=== PATIENT | female | born 1995 | race Two or more races ===

== ENCOUNTER 2023-07-04 11:53 | Day surgery (SDC) | payer OTHER ==
[2023-07-02 15:19] LABS: URINE APPEARANCE Clear; URINE BILIRRUBIN Negative (NEGATIVE); URINE BLOOD Negative; URINE COLOR Yellow; URINE GLUCOSE Negative (NEGATIVE); URINE LEUKOCYTE Negative; URINE NITRATE Negative; URINE PROTEIN Negative (NEGATIVE)
[2023-07-02 15:20] LABS: HEMATOCRIT 37.3 % (36.0-45.00); HEMOGLOBIN 12.8 g/dL (12.0-15.00); MEAN CELL VOLUME 83.7 fL (80.00-100.00); MEAN CORPUSCULAR HEMOGLOBIN 28.9 pg (27.00-32.0); MEAN CORPUSCULAR HGB CONC 34.5 g/dl (32.0-36.0); PLATELET COUNT 198 K/uL (150-450); RED BLOOD COUNT 4.45 M/uL (4.00-6.00); RED CELL DISTRIBUTION WIDTH 12.3 % (11.5-14.5)
[2023-07-02 15:22] LABS: URINE BACTERIA 254.3 uL (0.0-1933); URINE EPITHELIAL CELLS 52.6 uL (0.0-38.8); URINE RBC 3.1 uL (0.0-20.8); URINE WBC 6.4 uL (0.0-23.2)
[2023-07-02 15:43] LABS: INR 1.02; PARTIAL THROMBOPLASTIN TIME 27.3 SECONDS (22.0-34.0); PROTHROMBIN TIME 10.7 SECONDS (9.0-11.5)
[2023-07-02 16:50] LABS: RH NEGATIVE
[~2023-07-04 11:53] MED LIST: AMPICILLIN TRI500 MG PO
== END 2023-07-05 04:10 | disposition home or self-care (01) ==
LOC: CIR.AMB 11:53
PROVIDERS: ATTEND Obstetrics & Gynecology
DX: O02.1 Missed abortion (principal); O72.2 Delayed and secondary postpartum hemorrhage; Z20.822 Contact with and (suspected) exposure to COVID-19

== ENCOUNTER 2024-03-07 08:07 | Outpatient (CLI) | payer OTHER | END 2024-03-07 08:08 | disposition home or self-care (01) | LOC: PRENATAL 08:07 | PROVIDERS: ATTEND Obstetrics & Gynecology Maternal & Fetal Medicine | DX: O35.3XX0 Maternal care for (suspected) damage to fetus from viral disease in mother, not applicable or unspecified (principal); O44.00 Complete placenta previa NOS or without hemorrhage, unspecified trimester; O36.1999 Maternal care for other isoimmunization, unspecified trimester, other fetus; Z3A.19 19 weeks gestation of pregnancy ==

== ENCOUNTER 2024-07-23 05:31 | Inpatient (IN) | payer OTHER ==
[~2024-07-23] VITALS: Ht 160 cm; Wt 76.2 kg
[2024-07-23] VITALS (12 sets, daily range): BP systolic 105–132; BP diastolic 62–89
[2024-07-23] MEDS ORDERED: AMPICILLIN SODIUM 2,000 MG VIAL ONE (05:51)
[2024-07-23] MEDS ORDERED: PRENATAL TABLE1 EAC4 PO (06:30)
[2024-07-23] MEDS ORDERED: RINGERS SOLUTION,LACTATED 1,000 ML IV SCH (06:45)
[2024-07-23] MEDS ORDERED: AMPICILLIN SODIUM 2,000 MG VIAL IV ONE (06:45)
[2024-07-23 07:08] LABS: URINE BACTERIA 1260.6 uL (0.0-1933); URINE EPITHELIAL CELLS 58.6 uL (0.0-38.8); URINE RBC 4.5 uL (0.0-20.8); URINE WBC 11.5 uL (0.0-23.2)
[2024-07-23 07:09] LABS: HEMATOCRIT 36.2 % (36.0-45.00); HEMOGLOBIN 12.5 g/dL (12.0-15.00); MEAN CELL VOLUME 86.1 fL (80.00-100.00); MEAN CORPUSCULAR HEMOGLOBIN 29.7 pg (27.00-32.0); MEAN CORPUSCULAR HGB CONC 34.5 g/dl (32.0-36.0); PLATELET COUNT 169 K/uL (150-450); RED BLOOD COUNT 4.21 M/uL (4.00-6.00); RED CELL DISTRIBUTION WIDTH 12.8 % (11.5-14.5)
[2024-07-23 07:11] LABS: URINE CAST 0.14 uL (0.0-1.40)
[2024-07-23 07:12] LABS: URINE BILIRRUBIN SMALL (NEGATIVE); URINE BLOOD NEGATIVE; URINE GLUCOSE NEGATIVE (NEGATIVE); URINE LEUKOCYTE NEGATIVE; URINE NITRATE NEGATIVE; URINE PROTEIN NEGATIVE (NEGATIVE); URINE UROBILINOGEN 0.2 E.U./dl
[2024-07-23 07:13] LABS: URINE APPEARANCE CLEAR; URINE COLOR YELLOW; URINE KETONE >=80 (NEGATIVE)
[2024-07-23 07:17] LABS: INR 0.94; PARTIAL THROMBOPLASTIN TIME 25.6 SECONDS (22.0-34.0); PROTHROMBIN TIME 10.3 SECONDS (9.0-11.5)
[2024-07-23] MEDS ORDERED: AMPICILLIN SODIUM 1,000 MG VIAL IV SCH (09:00)
[2024-07-23] MEDS ORDERED: OXYTOCIN 20 UNITS/500ML RL PIGGYBAG IV SCH (10:30)
[2024-07-23] MEDS ORDERED: OXYTOCIN 20 UNITS/1000ML RL PIGGYBAG IV ONE (15:20)
[2024-07-23] MEDS ORDERED: LIDOCAINE HCL 1% 10ML VIAL ONE (15:20)
[2024-07-23] MEDS ORDERED: ERYTHROMYCIN BASE OPHT 1GM EACH TUBE OP ONE ×2 (15:20→16:30)
[2024-07-23] MEDS ORDERED: CHLORHEXIDINE GLUCONATE 120 ML BOTTLE TOP ONE ×2 (15:20→16:30)
[2024-07-23] MEDS ORDERED: OXYTOCIN 1,000 ML IV SCH ×2 (16:30→17:00)
[2024-07-23] MEDS ORDERED: LIDOCAINE HCL 1% 10ML VIAL IJ ONE (16:30)
[2024-07-23] MEDS ORDERED: ACETAMINOPHEN 500 MG GEL..CAP PO PRN (17:00)
[2024-07-23 20:22] LABS: HEMATOCRIT 32.4 % (36.0-45.00); MEAN CELL VOLUME 85.6 fL (80.00-100.00); MEAN CORPUSCULAR HGB CONC 33.9 g/dl (32.0-36.0); PLATELET COUNT 165 K/uL (150-450); RED BLOOD COUNT 3.79 M/uL (4.00-6.00)
[2024-07-24 04:55] VITALS: BP 102/66
[2024-07-24 08:00] VITALS: BP 119/72
[2024-07-24] MEDS ORDERED: PNV,CALCIUM 72/IRON/FOLIC ACID 1 TAB TABLET PO SCH (09:00)
[2024-07-24] MEDS ORDERED: FF) RHO(D) IMMUNE GLOBULIN (POM) IM SCH (13:00)
[2024-07-24 17:20] VITALS: BP 111/78
[2024-07-25 00:40] VITALS: BP 110/68
[2024-07-25 08:23] VITALS: BP 110/63
== END 2024-07-25 18:46 | disposition home or self-care (01) | DRG 807 ==
LOC: LDR → OB/GYN 16:15
PROVIDERS: ADMIT Obstetrics & Gynecology; ATTEND Obstetrics & Gynecology
PROC: 10E0XZZ Delivery of Products of Conception, External Approach (ICD-10-PCS; principal; 2024-07-23)
PROC: 0W8NXZZ Division of Female Perineum, External Approach (ICD-10-PCS; 2024-07-23)
PROC: 4A1HXCZ Monitoring of Products of Conception, Cardiac Rate, External Approach (ICD-10-PCS; 2024-07-23)
DX: O80 Encounter for full-term uncomplicated delivery (principal); Z37.0 Single live birth; Z3A.39 39 weeks gestation of pregnancy; Z20.822 Contact with and (suspected) exposure to COVID-19